=== PATIENT | female | born 1970 | race Caucasian/White ===

== ENCOUNTER 2018-12-07 12:17 | Day surgery (SDC) | payer OTHER ==
[~2018-12-07] VITALS: Ht 160 cm; Wt 125.2 kg
[~2018-12-07 12:17] MED LIST: DULCOLAX5 MG PO; IBUPROFEN800 MG PO; IMODIUM A-D2 MG PO; MOTRIN IB200 MG PO; NORCO 7.5-3251 EACH PO; PERCOCET 5-3251 EACH PO; PROZAC20 MG PO; TRAZODONE HCL100 MG PO; TRAZODONE HCL50 MG PO; ULTRAM50 MG PO; VITAMIN D400 UNIT/1 PO; ZOFRAN ODT4 MG SL
[2018-12-07] MEDS ORDERED: GLUCOPHAGE500 MG PO (12:40)
--- NOTE | 2018-12-07 14:05 | NUR ---
12/07/18 1405 Sheets,Diane 1356 PT ARRIVED TO PACU ASLEEP ON 2L VIA NC, RESP EVEN AND UNLABORED. PT REACTIV ETO VERBAL STIMULI. 1403 PT WOKE TO VERBAL STIMULI AND DENIES NAUSEA AND PAIN, PT PASSING GAS/AIR, PT EDUCATION GIVEN. PT ASLEEP OFF AND ON, SMALL AMOUNT OF SNORING NOTED.
--- NOTE | 2018-12-08 11:43 | OR ---
[facility] [address], [place] [address] Signed DATE OF OPERATION: 12/07/2018 SURGEON: Lewis Gaytan MD PREOPERATIVE DIAGNOSES: 1. Gastroesophageal reflux symptoms. 2. Episodic bowel problems including diarrhea. POSTOPERATIVE DIAGNOSES: 1. Somewhat abnormal flap valve, no evidence of esophagitis. 2. Small sessile polyp at 40 cm (excised). PROCEDURE PERFORMED: 1. Esophagogastroduodenoscopy with biopsy. 2. Total colonoscopy to cecum with cold morcellation polypectomy x1. ANESTHESIA: Intravenous sedation, fentanyl 200 mcg, Versed 5 mg. INDICATIONS: This morbidly obese white woman is a patient of JUAN Tirado. She has had issues of episodic diarrhea and other bowel complaints, but no blood per rectum. She has no family history of colon cancer. Additionally, she has reflux type symptoms. This includes occasional dysphagia. She is admitted to undergo upper endoscopy as well as colonoscopy. She understands the risks of bleeding, infection, and perforation. FINDINGS: The prep was excellent. Complete colonoscopy was undertaken of the cecum. There was only one small sessile polyp at 40 cm, which was excised. Her diarrheal issues and crampy may be related to prior history of cholecystectomy. As regard to upper endoscopy, she had a poor flap valve, but no sign of esophagitis, gastritis, ulceration, or other issue. CLOtest was negative 30 minutes post procedure. DESCRIPTION OF PROCEDURE: The patient was brought to the endoscopy suite, given topical Hurricaine spray, hypopharyngeal anesthesia, and placed in lateral decubitus position. She was given intravenous sedation to the point of slurred speech and nystagmus. A bite block was Electronically Signed By: LEWIS GAYTAN MD 12/08/18 1143 PATIENT NAME: ADELINE UNDERWOOD OPERATIVE REPORT DATE OF : 70 REPORT #: [id number] PHYSICIAN: LEWIS GAYTAN MD PCP: VITALY ALEGRIA REPORT IS CONFIDENTIAL AND NOT TO BE RELEASED WITHOUT AUTHORIZATION [facility] [address], [place] [address] Signed placed. An Olympus video upper endoscope was passed into the hypopharynx. Vocal cords were found to be normal. The scope was advanced to the esophagus. Throughout its length it was normal. Scope was advanced to the stomach, which was insufflated with air. Rugal folds were normal. There was no sign of gastritis, ulcer, or neoplasm. Pylorus was normal. Scope was passed through into the duodenum, which was normal also. Biopsies were then taken of the duodenal bulb and second and 3rd portions. This was to assess for celiac disease. The scope was withdrawn to the antrum, where biopsies were taken for both WILLEM and pathologic testing. Retroflexed view showed a somewhat effaced flap valve, but no sign of large hiatal hernia. Scope was withdrawn to the distal esophagus, where normal esophageal mucosa was noted. This was biopsied. Scope was withdrawn and biopsy was taken of the midesophagus as well. The scope was removed. Plans were then made for colonoscopy. The table was rotated and additional sedation given. Digital rectal examination was found to be normal. An Olympus video colonoscope was passed into the rectum and manipulated throughout the colon ultimately intubating the cecum. The ileocecal valve and appendiceal orifice were normal. The scope was withdrawn from that point and examination throughout showed no sign of abnormality until approximately 40 cm from the anal verge, where a small flat, sessile polyp was noted. Narrow band imaging showed it to be likely adenomatous. This was excised with cold morcellation technique with multiple bites. The scope was further withdrawn. There were no other findings of concern. Retroflexed view was normal as well. The scope was removed and the patient was taken to recovery room in good condition. CONCLUDING DIAGNOSIS: Diarrhea, fecal urgency, and occasional blood per rectum of uncertain etiology. The possibility of a choleretic source (history of cholecystectomy) is considered. We will prescribe Questran. As regard to upper endoscopy, she had no sign of esophagitis, but did have a somewhat effaced flap valve. She currently takes no medication for reflux disease. Empiric treatment with Prilosec may be reasonable on short term. We will see her back in 6 weeks and assess her progress. MD ELIZA Frances/CHET Electronically Signed By: LEWIS GAYTAN MD 12/08/18 1143 PATIENT NAME: ADELINE UNDERWOOD OPERATIVE REPORT DATE OF : 70 REPORT #: [id number] PHYSICIAN: LWEIS GAYTAN MD PCP: VITALY ALEGRIA REPORT IS CONFIDENTIAL AND NOT TO BE RELEASED WITHOUT AUTHORIZATION [facility] [address] [place] [address] Signed /[id number] cc: JUAN Tirado Copies: ~ Electronically Signed By: LEWIS GAYTAN MD 12/08/18 1143 PATIENT NAME: ADELINE UNDERWOOD OPERATIVE REPORT DATE OF : 70 REPORT #: [id number] PHYSICIAN: LEWIS GAYTAN MD PCP: VITALY ALEGRIA REPORT IS CONFIDENTIAL AND NOT TO BE RELEASED WITHOUT AUTHORIZATION
== END 2018-12-07 14:50 | disposition home or self-care (01) ==
LOC: OPS 12:17 → DS 13:15 → OPS 13:15
PROVIDERS: Surgery
PROC: 0DB68ZX Excision of Stomach, Via Natural or Artificial Opening Endoscopic, Diagnostic (ICD-10-PCS; 2018-12-07)
PROC: 0DB38ZX Excision of Lower Esophagus, Via Natural or Artificial Opening Endoscopic, Diagnostic (ICD-10-PCS; 2018-12-07)
PROC: 0DB28ZX Excision of Middle Esophagus, Via Natural or Artificial Opening Endoscopic, Diagnostic (ICD-10-PCS; 2018-12-07)
PROC: 0DBE8ZZ Excision of Large Intestine, Via Natural or Artificial Opening Endoscopic (ICD-10-PCS; principal; 2018-12-07 13:15)
PROC: 0DB78ZX Excision of Stomach, Pylorus, Via Natural or Artificial Opening Endoscopic, Diagnostic (ICD-10-PCS; 2018-12-07 13:15)
DX: D12.6 Benign neoplasm of colon, unspecified (principal); K21.0 Gastro-esophageal reflux disease with esophagitis; E66.01 Morbid (severe) obesity due to excess calories; G47.30 Sleep apnea, unspecified; Z99.89 Dependence on other enabling machines and devices
CPT/HCPCS: 99153; G0500; J2250; J3010; J7120

== ENCOUNTER 2022-05-19 07:48 | Day surgery (SDC) | payer OTHER ==
[~2022-05-19] VITALS: Ht 160 cm; Wt 83.0 kg
[~2022-05-19 07:48] MED LIST changes: +BIOTIN5 MG; +GLUCOPHAGE500 MG PO; +VITAMIN B122500 MCG PO
[2022-05-19] MEDS ORDERED: DAILY VITAMIN1 EAC3 PO (08:10)
[2022-05-19] MEDS ORDERED: PROBIOTIC250 MG PO (08:10)
--- NOTE | 2022-05-19 11:06 | NUR ---
05/19/22 1106 Mandi Parada 1102- PT ARRIVES TO PACU AWAKE AND TRING TO MOVE IN THE BED. PT REPORTS HER SHOULDER IS HURTING FROM LAYING ON IT. PT REPOSITIONED HERSELF TO HER BACK. PT DENIES ANY ABD PAIN OR NAUSEA. RESP EVEN AND UNLABORED. OXYGEN SAT HIGH 90'S ON 4L VIA CO2 NC.
--- NOTE | 2022-05-20 13:56 | OR ---
[facility] [address] [place], [place] [address] Signed DATE OF OPERATION: 05/19/2022 SURGEON: Lewis Gaytan MD PREOPERATIVE DIAGNOSIS: History of tubular adenoma at 40 cm, 2019; asymptomatic. POSTOPERATIVE DIAGNOSIS: Normal colon to cecum. PROCEDURE: Total colonoscopy to cecum. ANESTHESIA: Intravenous sedation; fentanyl 100 mcg and Versed 4 mg. INDICATION: This 51-year-old white woman is a patient of JUAN Tirado. She has history of tubular adenoma resection at 40 cm from the anal verge in 2019. She has no family history of colon cancer and is asymptomatic. She is admitted at this time to undergo colonoscopy for surveillance. She understands the risk of bleeding, infection, and perforation. FINDINGS: The prep was good. Complete colonoscopy was undertaken to the cecum. There was no evidence of polyps, diverticular formation, colitis, or cancer. DESCRIPTION OF PROCEDURE: The patient was brought to the endoscopy suite and placed in lateral decubitus position, given intravenous sedation to the point of slurred speech and nystagmus. Digital rectal examination was normal. An Olympus video colonoscope was passed in the rectum and manipulated throughout the colon ultimately intubating the cecum itself. The ileocecal valve and appendiceal orifice were normal. Scope was withdrawn and examination throughout showed no sign of abnormality specifically no polyps, diverticular formation, colitis, or cancer. Retroflexed view was normal as well. The scope was removed and the patient was taken to the recovery room in good condition. CONCLUDING DIAGNOSIS: Electronically Signed By: LEWIS GAYTAN MD 05/20/22 1356 PATIENT NAME: ADELINE UNDERWOOD OPERATIVE REPORT DATE OF : 70 REPORT #: [id number] PHYSICIAN: LEWIS GAYTAN MD PCP: VITALY ALEGRIA REPORT IS CONFIDENTIAL AND NOT TO BE RELEASED WITHOUT AUTHORIZATION [facility] [address] [facility] [place] [place] [address] Signed Normal colon. PLAN: Would recommend repeat colonoscopy in 7 to 10 years, sooner if symptoms should develop. She will return to the ongoing care of JUAN Tirado. MD ELIZA Frances/MONTYL /[id number] cc: JUAN Tirado Copies: VITALY ALEGRIA ~ Electronically Signed By: LEWIS GAYTAN MD 05/20/22 1356 PATIENT NAME: ADELINE UNDERWOOD OPERATIVE REPORT DATE OF : 70 REPORT #: [id number] PHYSICIAN: LEWIS GAYTAN MD PCP: VITALY ALEGRIA REPORT IS CONFIDENTIAL AND NOT TO BE RELEASED WITHOUT AUTHORIZATION
== END 2022-05-19 12:02 | disposition home or self-care (01) ==
LOC: OPS 07:48 → DS 07:48 → OPS 09:00 → DS 13:00 → OPS 13:00
PROVIDERS: ATTEND Surgery
PROC: 0DJD8ZZ Inspection of Lower Intestinal Tract, Via Natural or Artificial Opening Endoscopic (ICD-10-PCS; principal; 2022-05-19 09:00)
DX: Z12.11 Encounter for screening for malignant neoplasm of colon (principal); Z86.010 Personal history of colon polyps; E66.01 Morbid (severe) obesity due to excess calories; Z68.32 Body mass index [BMI] 32.0-32.9, adult; K21.00 Gastro-esophageal reflux disease with esophagitis, without bleeding
CPT/HCPCS: 99153; G0500; J2250; J3010; J7121

== ENCOUNTER 2024-07-06 13:37 | Emergency (ER) | payer OTHER ==
[~2024-07-06] VITALS: Ht 160 cm; Wt 81.8 kg
[~2024-07-06 13:37] MED LIST changes: +DAILY VITAMIN1 EAC3 PO; +PROBIOTIC250 MG PO
[2024-07-06] MEDS ORDERED: DIPHTH,PERTUSS(ACELL),TET VAC 0.5 ML SYRINGE IM ONE (13:45)
[2024-07-06] MEDS ORDERED: VITAMIN D21250 MCG PO (13:46)
[2024-07-06] MEDS ORDERED: LIDOCAINE/RACEPINEP/TETRACAINE 3 ML SYR TOP ONE (14:00)
[2024-07-06 15:18] VITALS: BP 130/61
== END 2024-07-06 15:18 | disposition home or self-care (01) ==
LOC: ED 13:37
DX: S61.210A Laceration without foreign body of right index finger without damage to nail, initial encounter (principal); W26.0XXA Contact with knife, initial encounter; Y93.G1 Activity, food preparation and clean up; Z79.899 Other long term (current) drug therapy
CPT/HCPCS: 12001; 90471; 90715; 99282-25

== ENCOUNTER 2025-03-11 07:11 | Day surgery (SDC) | payer BC ==
[~2025-03-11] VITALS: Ht 160 cm; Wt 71.7 kg
[~2025-03-11 07:11] MED LIST changes: +ADIPEX-P37.5 M1 PO; +BIOTIN5 M1 PO; +IBLOOD GLUCOSE TEST STRIP 1 EA TEST VI PRN; +LACTATED RINGER'S 1,000 ML IV SCH; +LIDOCAINE HCL 1% 5 ML SDV INJ ONE; +MIDAZOLAM HCL 5 MG/5 ML VIAL IV PRN; -PROZAC20 MG PO; +PROZAC40 MG PO; +VITAMIN D21250 MCG PO; +fentaNYL citrate 100 MCG/2 ML VIAL IV PRN
--- NOTE | 2025-03-11 07:18 | NUR ---
PT NOT AVAILABLE FOR VISIT. PROVIDED PRAYER.
[2025-03-11 07:24] VITALS: BP 124/63
[2025-03-11] MEDS ORDERED: MIDAZOLAM HCL 5 MG/5 ML VIAL ONE (08:26)
[2025-03-11] MEDS ORDERED: fentaNYL citrate 100 MCG/2 ML VIAL ONE (08:26)
--- NOTE | 2025-03-11 09:21 | NUR ---
03/11/25 0921 Scottie Umanzor 0907: Pt arrived to pacu via stretcher. pt on3l nc at this time. pt drowsy but responsive. pt abdomen soft to the touch 0910: pt titrated to RA at this time. sats in the high 90's. 0920: Pt remains drowsy but easily arousable. stable on RA.
[2025-03-11 09:56] VITALS: BP 99/59
--- NOTE | 2025-03-13 07:57 | OR ---
[facility] [address] [place], [place] [address] Signed DATE OF OPERATION: 03/11/2025 SURGEON: Lewis Gaytan MD PREOPERATIVE DIAGNOSIS: Significant episodic profound hemorrhoidal prolapse. POSTOPERATIVE DIAGNOSIS: Significant episodic profound hemorrhoidal prolapse. PROCEDURE: Total colonoscopy to cecum. ANESTHESIA: Intravenous sedation fentanyl 100 mcg and Versed 5 mg. INDICATION: This 54-year-old woman is a patient of Vitaly Oviedo. She has had episodic protrusion of anorectal mucosa initially considered possible rectal prolapse. Photographs of the patient were taken, have been inspected and findings are more consistent with hemorrhoidal prolapse, though significant of course. She has no current symptoms of incarcerated hemorrhoidal prolapse, thrombosis or other similar problem. Colonoscopy has been recommended to assure there were no other abnormalities, anticipating probable extensive hemorrhoidectomy in the near future. The risk of bleeding, infection, and perforation related to colonoscopy was reviewed with her. She understands and wished to proceed. FINDINGS: The prep was good. Complete colonoscopy was undertaken of the cecum. There was no evidence of polyps, diverticular formation, colitis, or cancer. Retroflexed view did confirm hemorrhoidal changes. An external examination showed external hemorrhoidal tags. It is most likely this represents hemorrhoidal prolapse rather than rectal prolapse as was considered previously. DESCRIPTION OF PROCEDURE: The patient was brought to the endoscopy suite and placed in lateral decubitus position, given intravenous sedation to the point of slurred speech and nystagmus. Digital rectal examination and inspection showed no sign of abnormality otherwise. There was not excessive laxity of the anal rectal sphincter complex. Electronically Signed By: LEWIS GAYTAN MD 03/13/25 0757 PATIENT NAME: ADELINE UNDERWOOD OPERATIVE REPORT DATE OF : 70 REPORT #: [id number] PHYSICIAN: LEWIS GAYTAN MD PCP: VITALY OVIEDO REPORT IS CONFIDENTIAL AND NOT TO BE RELEASED WITHOUT AUTHORIZATION [facility] [address] [place] [address] Signed An Olympus video colonoscope was passed in the rectum and manipulated throughout the colon ultimately intubating the cecum itself. The ileocecal valve and appendiceal orifice were normal. Scope was withdrawn. Examination throughout showed no sign of abnormality. There was no evidence of diverticular formation, colitis or cancer. Retroflexed view was undertaken showing some internal hemorrhoidal change. Careful withdrawal of scope through the anorectum did show what appeared to be prolapsed hemorrhoidal complexes. Scope was removed. The patient was taken to the recovery room in good condition. CONCLUDING DIAGNOSIS: No contraindication to extensive hemorrhoidectomy. We will see patient back in the office in 1 to 2 weeks and review options of management, possibly to include extensive hemorrhoidectomy. MD ELIZA Frances/CHET /[id number] cc: JUAN Tirado Copies: VITALY OVIEDO ~ Electronically Signed By: LEWIS GAYTAN MD 03/13/25 0757 PATIENT NAME: ADELINE UNDERWOOD OPERATIVE REPORT DATE OF : 70 REPORT #: [id number] PHYSICIAN: LEWIS GAYTAN MD PCP: VITALY OVIEDO REPORT IS CONFIDENTIAL AND NOT TO BE RELEASED WITHOUT AUTHORIZATION
== END 2025-03-11 10:03 | disposition home or self-care (01) ==
LOC: OPS 07:11 → DS 07:12 → OPS 08:20 → DS 12:00 → OPS 12:00
PROVIDERS: ATTEND Surgery
PROC: 0DJD8ZZ Inspection of Lower Intestinal Tract, Via Natural or Artificial Opening Endoscopic (ICD-10-PCS; principal; 2025-03-11 08:20)
DX: K64.8 Other hemorrhoids (principal); K21.9 Gastro-esophageal reflux disease without esophagitis; E66.01 Morbid (severe) obesity due to excess calories; Z79.899 Other long term (current) drug therapy
CPT/HCPCS: 99153; G0500; J2250; J3010; J7121

== ENCOUNTER 2025-05-16 06:05 | Day surgery (SDC) | payer BC ==
[2025-05-08 08:43] VITALS: BP 126/71
[~2025-05-16] VITALS: Ht 160 cm; Wt 78.6 kg
[~2025-05-16 06:05] MED LIST changes: +FIBER GUMMIES1 EACH PO; -IBLOOD GLUCOSE TEST STRIP 1 EA TEST VI PRN; -LIDOCAINE HCL 1% 5 ML SDV INJ ONE; -MIDAZOLAM HCL 5 MG/5 ML VIAL IV PRN; -fentaNYL citrate 100 MCG/2 ML VIAL IV PRN
[2025-05-16 06:15] VITALS: BP 130/79
[2025-05-16] MEDS ORDERED: BUPIVACAINE 0.75% IN DEXTROSE 2 ML AMP ONE (06:52)
[2025-05-16] MEDS ORDERED: LIDOCAINE HCL 2% 5 ML SDV ONE (06:52)
[2025-05-16] MEDS ORDERED: MIDAZOLAM HCL 2 MG/2 ML VIAL ONE (06:55)
[2025-05-16] MEDS ORDERED: KETOROLAC TROMETHAMINE 30 MG/ML VIAL ONE (06:56)
[2025-05-16] MEDS ORDERED: IBLOOD GLUCOSE TEST STRIP 1 EA TEST VI PRN ×2 (07:00→09:00)
[2025-05-16] MEDS ORDERED: HEParin SOD (PORCINE) 5,000 UNIT/ML SDV SUB-Q SCH (07:00)
[2025-05-16] MEDS ORDERED: LIDOCAINE HCL 1% 5 ML SDV INJ ONE (07:00)
[2025-05-16] MEDS ORDERED: CEFAZOLIN SODIUM 2 GM/20 ML SYR IV SCH (07:00)
[2025-05-16] MEDS ORDERED: fentaNYL citrate 50 MCG/ML SDV IV PRN (09:00)
[2025-05-16] MEDS ORDERED: NALOXONE HCL 0.4 MG SYR IV PRN ×2 (09:00→09:15)
[2025-05-16] MEDS ORDERED: FLUCONAZOLE 200 MG TAB PO SCH (09:10)
[2025-05-16] MEDS ORDERED: ACETAMINOPHEN 500 MG TAB PO PRN (09:15)
[2025-05-16] MEDS ORDERED: IBUPROFEN 600 MG TAB PO PRN (09:15)
[2025-05-16] MEDS ORDERED: LACTATED RINGER'S 1,000 ML IV SCH (09:15)
[2025-05-16] MEDS ORDERED: IBUPROFEN600 MG PO (09:17)
[2025-05-16] MEDS ORDERED: HYDROMORPHONE HC2 MG PO (09:17)
[2025-05-16] MEDS ORDERED: FLUCONAZOLE200 MG PO (09:17)
[2025-05-16] MEDS ORDERED: ACETAMINOPHEN500 MG PO (09:18)
[2025-05-16] MEDS ORDERED: METAMUCIL FIBE3.4 GM PO (09:19)
[2025-05-16] MEDS ORDERED: DILTIAZEM HCL120 MG PO (09:21)
[2025-05-16 09:48] VITALS: BP 128/73
[2025-05-16 10:16] VITALS: BP 129/68
[2025-05-16 11:52] VITALS: BP 127/67
[2025-05-16 12:44] VITALS: BP 120/54
--- NOTE | 2025-05-16 14:00 | OR ---
[facility] [address] [place], [place] [address] Signed DATE OF OPERATION: 05/16/2025 SURGEON: Lewis Gaytan MD PREOPERATIVE DIAGNOSIS: Episodic symptomatic hemorrhoidal prolapse. POSTOPERATIVE DIAGNOSIS: Episodic symptomatic hemorrhoidal prolapse. PROCEDURE: Excision of two segments of internal and external hemorrhoidal disease, left lateral and right posterior. ANESTHESIA: Saddle block with IV sedation, Petrona Lida, CIRCUS RIDER and local 10 mL of 0.25% Marcaine with epinephrine. INDICATION: This 54-year-old woman is a patient of Vitaly Oviedo. She had hemorrhoidal prolapse disease without specific rectal prolapse proper. She did undergo colonoscopy by me on March 11, 2025 showing no evidence of neoplasm, inflammatory bowel disease or other issues. External examination showed external hemorrhoidal tag in addition to internal hemorrhoidal prolapsing tissue. Sphincter tone was well preserved. She is here at this time to undergo hemorrhoidectomy by open technique. The risk of bleeding, infection, recurrence, need for additional treatment and of course, anal stenosis were all reviewed. Strict avoidance of excessive resection has been recommended, so as to avoid other complications including anal stenosis. Understanding the risk of the procedure, she wished to proceed. FINDINGS: Hemorrhoidal disease was dominant in left lateral and right posterior aspect. There was less hemorrhoidal burden in the right anterior aspect. Internal and external hemorrhoidal tissue was excised. The excision did allow for closure of mucosa leaving the external portion available for drainage as appropriate. Blood loss was approximately 25 mL. The right anterior segment was left untouched as it did not seem to have that much redundancy and would be more problematic for postoperative complications and considered not worth that hazard. DESCRIPTION OF PROCEDURE: Electronically Signed By: LEWIS GAYTAN MD 05/16/[address] [facility] [place] PATIENT NAME: ADELINE UNDERWOOD OPERATIVE REPORT DATE OF : 70 REPORT #: [id number] PHYSICIAN: LEWIS GAYTAN MD PCP: VITALY OVIEDO REPORT IS CONFIDENTIAL AND NOT TO BE RELEASED WITHOUT AUTHORIZATION [facility] [address] [place], [place] [address] Signed The patient was given a saddle block and taken to the operating room, placed in prone phillip-knife position. She had a fair amount of liquid stool that was suctioned free. The buttocks were taped apart. She received preoperative antibiotic Ancef and Flagyl. The perineum was prepared with a Betadine based solution and draped sterilely. Sphincter tone was considered normal despite spinal anesthetic. An anal retractor was placed. Egress of liquid stool was noted and suctioned free. The mucosa of the rectum appeared normal without sign of inflammatory bowel disease or other problem. Inspection of the external anorectal area showed some external skin tags and redundancy of the left lateral hemorrhoidal complex and right posterior complex. Dissection was begun on the left side. The Monge retractor was used to grasp the hemorrhoidal tissue well above the dentate line. Using a 2-0 chromic suture the pedicle was secured taking care to avoid the underlying muscular layer. Monge retractor was elevated. The internal and external hemorrhoidal components and using electrocautery, they were excised. This did extend beyond the dentate line to incorporate the external hemorrhoidal complex. Dissection was carried with meticulous care in the submucosal space. Bleeding was controlled with electrocautery. Pedicle was additionally secured with additional ties of the chromic and the hemorrhoid amputated and passed for pathology. The mucosa was then reapproximated with running chromic suture associated with internal hemorrhoidal pedicle. Irrigation was undertaken throughout assuring no ongoing bleeding. The suture was tied allowing for a space to egress of secretions as necessary. With similar technique, the right posterior hemorrhoidal complex was excised. This was a much broader area and a wide resection was undertaken. Hemostasis was assured with cautery and chromic suture as necessary. Mucosa was reapproximated in a similar way, leaving a space externally for drainage. Examination of the right anterior aspect showed much of that hemorrhoidal tissue excised in the right posterior resection and additional resection was deemed inadvisable. Irrigation was undertaken. A 10 mL of 0.25% Marcaine with epinephrine was injected locally. A Gel-Foam was rolled and bacitracin applied and inserted into the anal canal. A peripad was applied. She was ultimately returned to the supine position and then taken to recovery room in good condition. Blood loss was about 25 mL in aggregate. Sponge, needle, and instrument counts reported as correct x3. MD ELIZA Frances/CHET Electronically Signed By: LEWIS GAYTAN MD 05/16/[address] [facility] PATIENT NAME: ADELINE UNDERWOOD OPERATIVE REPORT DATE OF : 70 REPORT #: [id number] PHYSICIAN: LEWIS GAYTAN MD PCP: VITALY OVIEDO REPORT IS CONFIDENTIAL AND NOT TO BE RELEASED WITHOUT AUTHORIZATION [address] [address] Signed /[id number] cc: JUAN Tirado Copies: VITALY OVIEDO ~ Electronically Signed By: LEWIS GAYTAN MD 05/16/25 1400 PATIENT NAME: ADELINE UNDERWOOD OPERATIVE REPORT DATE OF : 70 REPORT #: [id number] PHYSICIAN: LEWIS GAYTAN MD PCP: VITALY OVIEDO REPORT IS CONFIDENTIAL AND NOT TO BE RELEASED WITHOUT AUTHORIZATION
--- NOTE | 2025-05-20 12:47 | PATH ---
[facility] [address] [place], [place] [address] Signed SPECIMEN(S): A LEFT LATERAL HEMORRHOIDAL COMPLEX SPECIMEN(S): B RIGHT POSTERIOR HEMORRHOIDAL COMPLEX SPECIMEN SOURCE: A. LEFT LATERAL HEMORRHOIDAL COMPLEX B. RIGHT POSTERIOR HEMORRHOIDAL COMPLEX CLINICAL HISTORY: Hemorrhoids FINAL PATHOLOGIC DIAGNOSIS: A. Left lateral hemorrhoidal complex, hemorrhoidectomy: - Benign hemorrhoidal tissue, negative for dysplasia. B. Right posterior hemorrhoidal complex, hemorrhoidectomy: - Benign hemorrhoidal tissue, negative for dysplasia. DDF MICROSCOPIC EXAMINATION: Histologic sections of all submitted blocks are examined by light microscopy. These findings, together with the gross examination, support the pathologic diagnosis. GROSS DESCRIPTION: A. The specimen, labeled and designated "Underwood, left lateral hemorrhoidal complex," is received in formalin and consists of a thompson to red-brown wrinkled piece of skin/mucosa (2.2 x 1.6 x 1.4 cm). The resection margin is inked blue, and the tissue is serially sectioned to reveal red-brown to pink-thompson soft and hemorrhagic cut surfaces. Ingot Car Operator sections are submitted in cassette (A1). B. The specimen, labeled and designated "Underwood, right posterior hemorrhoidal complex," is received in formalin and consists of a thompson to red-brown wrinkled/slightly fragmented piece of skin/mucosa (3.3 x 1.5 x 1.1 cm). The resection margin is inked blue, and the tissue is serially sectioned to reveal pink-thompson to red-brown soft and hemorrhagic cut surfaces. Ingot Car Operator sections are submitted in cassette (B1). VB (under the direct supervision of a pathologist) The Gross Description was prepared using a voice recognition system. The report was reviewed for accuracy; however, sound-alike word errors, addition and/or deletions may occur. If there is any PATIENT NAME: ADELINE UNDERWOOD PATHOLOGY DATE OF : 70 REPORT #: [id number] PHYSICIAN: CLARY BAKER PCP: VITALY ALEGRIA REPORT IS CONFIDENTIAL AND NOT TO BE RELEASED WITHOUT AUTHORIZATION [facility] [address] [place], [place] [address] Signed question about this report, please contact Client Services. ADDITIONAL NOTES: Immunohistochemical and/or in situ hybridization studies if performed in this case included appropriate positive controls that reacted as expected. This test was developed and its performance characteristics determined by [facility]. It has not been cleared or approved by the U.S. Food and Drug Administration. The FDA has determined that such clearance or approval is not necessary. This test is used for clinical purposes. It should not be regarded as investigational or for research. [facility] is certified under the Clinical Laboratory Improvement Amendments of 1988 (CLIA) as qualified to perform high complexity clinical laboratory testing. PERFORMING LABORATORY: Technical component was performed by [facility], [address] [place] [address] (CLIA# [id number]). Professional interpretation was performed by [facility] [address] [place] [id number] Diagnostician: Jono Capps DO Pathologist Electronically Signed 05/20/2025 Copies: ~ PATIENT NAME: ADELINE UNDERWOOD PATHOLOGY DATE OF : 70 REPORT #: [id number] PHYSICIAN: CLARY PATHOLOGY PCP: VITALY ALEGRIA REPORT IS CONFIDENTIAL AND NOT TO BE RELEASED WITHOUT AUTHORIZATION
== END 2025-05-16 13:30 | disposition home or self-care (01) ==
LOC: DS 06:05
PROVIDERS: ATTEND Surgery
PROC: 06BY0ZC Excision of Hemorrhoidal Plexus, Open Approach (ICD-10-PCS; principal; 2025-05-16 07:30)
DX: K64.8 Other hemorrhoids (principal); K64.4 Residual hemorrhoidal skin tags; K21.00 Gastro-esophageal reflux disease with esophagitis, without bleeding; Z86.0101 Personal history of adenomatous and serrated colon polyps; Z79.899 Other long term (current) drug therapy
CPT/HCPCS: 00902; A9270; J0690; J1644; J1885; J2003; J2250; J2405; J2704; J3010; J7121